=== PATIENT | female | born 1935 | race Caucasian/White ===

== ENCOUNTER → 2017-01-31 | Outpatient (CLI) | payer OTHER ==
[~2017-01-31] MED LIST: ALLO100T PO; AMOX500C3 PO; CALCTAB7 PO; CEPH500C2 PO; CHOL100010 PO; CHOL1TAB76 PO; CHOL4POW11 PO; CIPR-255 PO; CRAN1CAP16 PO; CRAN1TAB PO; CYAN100020 PO; LACT1CAP21 PO; LBT/100 PO; LOSA100T2 PO; MBXC PO; MELA1TAB5 PO; MISCTAB78 PO; MYCO500T5 PO; NYSS/ PO; OMEP20CA59 PO; OXYC1TAB3 PO; PARO1TAB27 PO; POTA-327 PO; POTA10CA28 PO; PRD10 PO; TRAZ50TA35 PO; TRMCR515 TOP; VITAMIN D PO
[2017-01-31 12:20] LABS: BASO % 0.3 %; BASO ABS # 0.02 K/uL (0-0.2); COMPLETE YES; EOS % 1.2 %; HEMATOCRIT 41.9 % (37-47); IG% 0.1 %; LYMPH % 19.1 %; MEAN CELL VOLUME 95.4 fL (80-100); MEAN CORPUSCULAR HGB CONC 32.5 g/dl (32-36); MEAN PLATELET VOLUME 10.4 fL (7.4-10.4); MONO % 8.9 %; NEUT % 70.4 %; PLATELET COUNT 222 K/uL (130-400); RED BLOOD COUNT 4.39 M/uL (4.2-5.4); WHITE BLOOD COUNT 7.32 K/uL (4.8-10.8)
[2017-01-31 12:35] LABS: ALT/SGPT 15 U/L (12-78); BLOOD UREA NITROGEN 21 mg/dl (7-18); BUN/CREATININE RATIO 14.8 (10-20); CARBON DIOXIDE 30 mmol/L (21-32); CHLORIDE 102 mmol/L (98-107); GLUCOSE 106 mg/dl (70-99); POTASSIUM 4.2 mmol/L (3.5-5.1); SODIUM 138 mmol/L (136-145)
[2017-01-31 12:37] LABS: CALCIUM 9.6 mg/dl (8.5-10.1); URINE APPEARANCE CLEAR (CLEAR); URINE BILIRUBIN NEG (NEG); URINE COLOR YELLOW; URINE EPITHELIAL CELL AUTO >30 /lpf (0-5); URINE NITRITE NEG (NEG); URINE SPECIFIC GRAVITY 1.016 (1.000-1.030); UROBILINOGEN NEG (NEG); ZZUR CULT IF INDIC CLEAN CATCH YES
[2017-01-31 12:43] LABS: ESTIMATED AVERAGE GLUCOSE 128 mg/dl; HA1C FLAG Normal (Normal)
[2017-01-31 12:45] LABS: ALB/GLOB RATIO 0.9 (0.9-2); ALKALINE PHOSPHATASE 93 U/L (45-117); AST/SGOT 11 U/L (15-37)
[2017-01-31 12:46] LABS: MANUAL MICROSCOPIC REQUIRED? NO; REVIEW REQ? NO
--- NOTE | 2017-02-06 11:48 | CODING QUERY MEDICAL NECESSITY ---
SUPPORTING DIAGNOSIS NEEDED A supporting diagnosis is required for the test/procedure performed on this patient in order for us to be reimbursed by the patient's insurance. Please provide a supporting diagnosis for the following test/procedure listed below next to the test name along with your signature. *If there is no additional diagnosis for this patient that would support the following test/procedure please document that below next to the test/procedure. Test(s)/Procedure(s) that require a supporting diagnosis: DOS 01/31 * Hba1c DIAGNOSIS: Provider Signature: Date: Thank you Susan Santamaria Health Information Management Once completed, please kindly fax back to [phone] For questions please call [phone]
== END | disposition home or self-care (01) ==
LOC: C.LABBFT 09:49
PROVIDERS: ATTEND Internal Medicine
DX: R31.29 Other microscopic hematuria (principal); R73.03 Prediabetes; I10 Essential (primary) hypertension

== ENCOUNTER → 2017-02-20 | Outpatient (CLI) | payer OTHER ==
--- NOTE | 2017-02-20 13:27 | DIAGNOSTIC IMAGING REPORT ---
CHEST 2 VIEWS ROUTINE CLINICAL HISTORY: R09.89 Abnormal lung [id number] COMPARISON STUDY: 01/02/2016 FINDINGS: There is mild elevation of the right hemidiaphragm. The heart is normal in size. There is no failure. There is no focal pulmonary consolidation. There are no pleural effusions.[ IMPRESSION: Persistent elevation of the right hemidiaphragm. No acute findings. Electronically signed by: Nilay Polo M.D. 02/20/2017 1:26 PM Dictated Date/Time: 02/20/2017 1:25 PM
== END | disposition home or self-care (01) ==
LOC: C.RAD1850 13:15
PROVIDERS: ATTEND Internal Medicine
DX: R09.89 Other specified symptoms and signs involving the circulatory and respiratory systems (principal)

== ENCOUNTER → 2017-03-06 | Outpatient (CLI) | payer OTHER ==
[2017-03-06 12:25] LABS: BLOOD UREA NITROGEN 20 mg/dl (7-18); BUN/CREATININE RATIO 14.1 (10-20); CARBON DIOXIDE 28 mmol/L (21-32); CHLORIDE 104 mmol/L (98-107); GLUCOSE 97 mg/dl (70-99); POTASSIUM 3.5 mmol/L (3.5-5.1); SODIUM 141 mmol/L (136-145); URIC ACID 5.3 mg/dl (2.6-7.2)
[2017-03-06 12:28] LABS: CALCIUM 9.2 mg/dl (8.5-10.1)
[2017-03-06 12:35] LABS: PHOSPHORUS 3.3 mg/dl (2.5-4.9)
== END | disposition home or self-care (01) ==
LOC: C.LABBFT 09:56
PROVIDERS: ATTEND Internal Medicine
DX: M10.9 Gout, unspecified (principal); N18.3 Chronic kidney disease, stage 3 (moderate); E03.9 Hypothyroidism, unspecified

== ENCOUNTER → 2017-04-01 | Outpatient (CLI) | payer OTHER ==
[~2017-04-01] MED LIST changes: -CIPR-255 PO; -OMEP20CA59 PO
== END | disposition home or self-care (01) ==
LOC: C.PATHSPEC 11:22
PROVIDERS: ATTEND Physician Assistant
DX: T81.9XXA Unspecified complication of procedure, initial encounter (principal); X58.XXXA Exposure to other specified factors, initial encounter

== ENCOUNTER → 2017-04-11 | Day surgery (SDC) | payer OTHER ==
[2017-04-09 09:55] VITALS: Ht 152.4 cm; Wt 72.7 kg
[~2017-04-11] VITALS: Ht 152.4 cm; Wt 72.7 kg
[~2017-04-11] MED LIST changes: -CHOL4POW11 PO; +LIDOCAINE HCL 2% 2 ML VIAL (20MG/ML) ONE; +PROPOFOL IV EMULSION 10 MG/ML 20 ML VIAL IV ONE; +SODIUM CHLORIDE 0.9% 500ML 500 ML IV ONE; -VITAMIN D PO
--- NOTE | 2017-04-11 11:26 | Endo History and Physical ---
History & Physical Date of Service: Apr 11, 2017. Chief Complaint: DYSPHAGIA Referring Physician: DR CLAVIN History of Present Illness Dysphagia Past Medical History Reflux, Hypertension Past Surgical History Hx Cardiac Surgery: No Hx Internal Defibrillator: No Hx Pacemaker: No Hx Abdominal Surgery: Yes (cholecystectomy, AND ERCP, [facility]IE[facility] BSO) Hx of Implantable Prosthesis: No Hx Post-Op Nausea and Vomiting: No Hx Cancer Surgery: No Hx Thoracic Surgery: No Hx Orthopedic: No Hx Urinary Tract Surgery: No Family History None Social History Smoking Status: Never Smoker Hx Substance Use: No Hx Alcohol Use: No Allergies Coded Allergies: Felodipine (Verified Allergy, Unknown, pt unsure, 04/09/17) Venlafaxine (Verified Allergy, Unknown, pt unsure, 04/09/17) Alendronate (Verified Adverse Reaction, Unknown, diarrhea and vomiting, ) Amlodipine (Verified Adverse Reaction, Unknown, pt unsure, 04/09/17) Current Medications Reported Home Medications Medications Dose Route/Sig Max Daily Dose Days Date Category Dose Instructions Keflex (Cephalexin Monohydrate) 500 Mg Cap 500 Mg PO TID 04/09/17 Reported Cranberry (Cranberry (Vaccinium Macrocarp) 125 Mg Tab 1 Tab PO QAM 04/09/17 Reported Kp Melatonin (Melatonin) 3 Mg Tab 1 Tab PO HS 04/09/17 Reported Vitamin D (Cholecalciferol) 1,000 Unit Tab 2,000 Intunit PO QAM 04/09/17 Reported Caltrate 600 Plus (Calcium Carbonate-Vitamin D W/) 1 Tab Tab 1 Tab PO BID 03/20/17 Reported Hyzaar (Losartan Potassium & Hydrochlo) 1 Tab Tab 1 Tab PO DAILY 30 03/20/17 Reported Paxil (Paroxetine HCl) 20 Mg Tab 20 Mg PO QAM 03/20/17 Reported Triamcinolone Acetonide (Triamcinolone Acet) 45 Appln/15 Gm Cr 1 Appln TOP BID 30 03/20/17 Reported Trazodone (Trazodone HCl) 50 Mg Tab 50 Mg PO HS 01/02/16 Reported Osteo Bi-Flex Advanced Do ([facility] Products) 1 Tab Tab 1 Tab PO QAM 01/04/14 Reported Hyzaar (Losartan Potassium & Hydrochlo) 1 Tab Tab 1 Tab PO QAM 01/04/14 Reported 100/25 Normodyne (Labetalol Hcl) 100 Mg Tab 100 Mg PO Q12 01/04/14 Reported Klor-Con (Potassium Chloride) 10 Meq Tabcr 10 Meq PO BID 01/04/14 Reported Zyloprim (Allopurinol) 100 Mg Tab 100 Mg PO QAM 01/04/14 Reported Vital Signs Weight (Kilograms): 72.73 Height (Feet): 5 Height (Inches): 0 Date Time Temp Pulse Resp B/P (MAP) Pulse Ox O2 Delivery O2 Flow Rate FiO2 04/11/17 10:55 36.7 78 20 159/95 (116) 99 Room Air Physical Exam General Appearance: WD/WN, no apparent distress Respiratory/Chest: Auscultation: breath sounds normal, no wheezing, no rales/crackles Cardiovascular: Heart Auscultation: RRR, no murmurs Abdomen: Inspection & Palpation: soft, no tenderness, guarding & rebound Assessment and Plan For EGD with dilation.
--- NOTE | 2017-04-11 11:45 | Discharge Instructions ---
Endoscopy Patient Instructions Date / Procedure(s) Performed Apr 11, 2017. EGD Allergy Information Coded Allergies: Felodipine (Verified Allergy, Unknown, pt unsure, 04/09/17) Venlafaxine (Verified Allergy, Unknown, pt unsure, 04/09/17) Alendronate (Verified Adverse Reaction, Unknown, diarrhea and vomiting, ) Amlodipine (Verified Adverse Reaction, Unknown, pt unsure, 04/09/17) Discharge Date / Findings Apr 11, 2017. Esophageal dilation performed. Hiatal hernia. Duodenal diverticulum. Medication Instructions Restart Stopped Medication(s): Resume all medications today. Provider Instructions Activity Restrictions - No exercising or heavy lifting for 24 hours. - Do not drink alcohol the day of the procedure. - Do not drive a car or operate machinery until the day after the procedure. - Do not make any important decisions or sign important papers in 24 hours after the procedure. Following Day: - Return to full activity which may include returning to work/school. Diet Start your diet with liquids and light foods (jello, soup, juice, toast). Then eat your usual diet if not nauseated. Treatment For Common After Affects For mild abdominal pain, bloating, or excessive gas: - Rest - Eat lightly - Lie on right side Follow-Up Information Follow-up with DR CALVIN as scheduled Anesthesia Information What You Should Know You have had a procedure that required some medicine to reduce anxiety and discomfort. This treatment is called moderate sedation. After receiving the treatment, you may be sleepy, but you will be able to breathe on your own. The effects of the treatment may last for several hours. Follow these instructions along with Activity/Diet recommendations noted above: * Do NOT do anything where dizziness or clumsiness would be dangerous. * Rest quietly at home today, then you can be up and about tomorrow. * Have a responsible person stay with you the rest of today. * You may have had an I.V. today. If so, you may take the dressing off later today. Recommendations Call your doctor if: * Trouble breathing * Continuous vomiting for more than 24 hours * Temperature above 101 degrees * Severe abdominal pain or bloating * Pain not relieved by pain medicine ordered * There is increased drainage or redness from any incision * A large amount of rectal bleeding greater than 2-3 tablespoons. (If you had a polyp/s removed or have hemorrhoids, a small amount of blood - from the rectum is to be expected.) * You have any unanswered questions or concerns. IN THE EVENT OF A SERIOUS EMERGENCY, GO TO THE NEAREST EMERGENCY ROOM Your discharge instructions were prepared by provider David Barry. Patient Instructions Signature Page Kenna Schmidt Patient (or Guardian) Signature/Date: I have read and understand the instructions given to me by my caregivers. Caregiver/RN/Doctor Signature/Date: The above-named patient and/or guardian has received patient instructions on this date. + Original Patient Signature Page (only) stays with chart. Please make copy for patient.
--- NOTE | 2017-04-11 11:45 | GI REPORT ---
Procedure Date: 04/11/2017 10:46 AM Procedure: Upper GI endoscopy Indications: Dysphagia Medicines: Monitored Anesthesia Care Complications: No immediate complications. Estimated blood loss: None. Estimated Blood Loss: Estimated blood loss: none. Procedure: Pre-Anesthesia Assessment: - Prior to the procedure, a History and Physical was performed, and patient medications, allergies and sensitivities were reviewed. The patient's tolerance of previous anesthesia was reviewed. - ASA Grade Assessment: II - A patient with mild systemic disease. After obtaining informed consent, the endoscope was passed under direct vision. Throughout the procedure, the patient's blood pressure, pulse, and oxygen saturations were monitored continuously. The scope was introduced through the mouth, and advanced to the third part of duodenum. The upper GI endoscopy was accomplished with ease. The patient tolerated the procedure well. Findings: No endoscopic abnormality was evident in the esophagus to explain the patient's complaint of dysphagia. It was decided, however, to proceed with dilation of the entire esophagus. A guidewire was placed and the scope was withdrawn. Dilation was performed with an Moroccan dilator with no resistance at 48 Fr and 54 Fr. The Z-line was regular and was found 33 cm from the incisors. Biopsies were taken with a cold forceps for histology. A small hiatus hernia was present. The entire examined stomach was normal. Biopsies were taken with a cold forceps for Helicobacter pylori testing. A large diverticulum was found in the second part of the duodenum. Verification of patient identification for the specimens was done by the physician and nurse using the patient's name, date and medical record number. Impression: - No endoscopic esophageal abnormality to explain patient's dysphagia. Esophagus dilated. Dilated. - Z-line regular, 33 cm from the incisors. Biopsied. - Small hiatus hernia. - Normal stomach. Biopsied. - Duodenal diverticulum. Recommendation: - Await pathology results. - Discharge patient to home (with escort). David Barry M.D. David Barry MD 04/11/2017 11:44:36 AM This report has been signed electronically. Note Initiated On: 04/11/2017 10:46 AM I attest to the content of the Intraoperative Record and orders documented therein, exceptions below
--- NOTE | 2017-04-11 12:07 | Anesthesiology Progress Note ---
Anesthesia Post Op Note Date & Time Apr 11, 2017 at 12:07 Vital Signs Vital Signs Past 12 Hours Date Time Temp Pulse Resp B/P (MAP) Pulse Ox O2 Delivery O2 Flow Rate FiO2 04/11/17 11:50 80 20 110/63 (79) 100 Mask 10 04/11/17 10:55 36.7 78 20 159/95 (116) 99 Room Air Notes Mental Status: alert / awake / arousable, participated in evaluation Pt Amnestic to Procedure: Yes Nausea / Vomiting: adequately controlled Pain: adequately controlled Airway Patency, RR, SpO2: stable & adequate BP & HR: stable & adequate Hydration State: stable & adequate Anesthetic Complications: no major complications apparent
[2017-04-11 12:26] VITALS: BP 144/82; PULSE 69; O2SAT 95
== END | disposition home or self-care (01) ==
LOC: C.GI 10:13
PROVIDERS: ATTEND Internal Medicine Gastroenterology
DX: R13.10 Dysphagia, unspecified (principal); K44.9 Diaphragmatic hernia without obstruction or gangrene; K22.5 Diverticulum of esophagus, acquired; K29.50 Unspecified chronic gastritis without bleeding; K21.9 Gastro-esophageal reflux disease without esophagitis; I10 Essential (primary) hypertension; Z79.899 Other long term (current) drug therapy

== ENCOUNTER → 2017-04-19 | Outpatient (CLI) | payer OTHER ==
[~2017-04-19] MED LIST changes: -LIDOCAINE HCL 2% 2 ML VIAL (20MG/ML) ONE; -PROPOFOL IV EMULSION 10 MG/ML 20 ML VIAL IV ONE; -SODIUM CHLORIDE 0.9% 500ML 500 ML IV ONE
[2017-04-19 17:21] LABS: BLOOD UREA NITROGEN 21 mg/dl (7-18); CALCIUM 9.1 mg/dl (8.5-10.1); CARBON DIOXIDE 28 mmol/L (21-32); CHLORIDE 104 mmol/L (98-107); GLUCOSE 101 mg/dl (70-99); POTASSIUM 3.6 mmol/L (3.5-5.1); SODIUM 139 mmol/L (136-145)
== END | disposition home or self-care (01) ==
LOC: C.LABBFT 11:34
PROVIDERS: ATTEND Internal Medicine
DX: E03.9 Hypothyroidism, unspecified (principal)

== ENCOUNTER 2017-05-04 19:29 | Inpatient (IN) | payer OTHER ==
[~2017-05-04] VITALS: Ht 152.4 cm; Wt 70.5 kg
[~2017-05-04 19:29] MED LIST changes: -AMOX500C3 PO; -CHOL1TAB76 PO; -CRAN1CAP16 PO; -CYAN100020 PO; -LACT1CAP21 PO; -MBXC PO; -MYCO500T5 PO; -NYSS/ PO; -OXYC1TAB3 PO; -POTA10CA28 PO; -PRD10 PO; +VANCOMYCIN INJ 1,750 MG in SODIUM CHLORIDE 0.9% 500ML 500 ML IV STA
[2017-05-04] MEDS ORDERED: SODIUM CHLORIDE 0.9% 1000ML 1,000 ML IV STA (19:51)
[2017-05-04] MEDS ORDERED: FENTANYL CITRATE INJ 50 MCG/1 ML 2 ML VIAL IV PRN (20:00)
[2017-05-04] MEDS ORDERED: AMPICILLIN/SULBACTAM SOD INJ 3,000 MG in SODIUM CHLORIDE 0.9% 100ML 100 ML IV ONE (20:00)
[2017-05-04] MEDS ORDERED: PRD10 PO (20:17)
[2017-05-04] MEDS ORDERED: CYAN100020 PO (20:17)
[2017-05-04] MEDS ORDERED: CHOL1TAB76 PO (20:17)
[2017-05-04] MEDS ORDERED: MYCO500T5 PO (20:17)
[2017-05-04] MEDS ORDERED: CEPH500C2 PO (20:17)
[2017-05-04] MEDS ORDERED: POTA10CA28 PO (20:17)
[2017-05-04] MEDS ORDERED: CRAN1CAP16 PO (20:17)
[2017-05-04 20:21] LABS: HEMATOCRIT 40.5 % (37-47); MEAN CORPUSCULAR HEMOGLOBIN 30.2 pg (25-34); MEAN CORPUSCULAR HGB CONC 33.6 g/dl (32-36); MEAN PLATELET VOLUME 9.1 fL (7.4-10.4); PLATELET COUNT 275 K/uL (130-400); WHITE BLOOD COUNT 17.61 K/uL (4.8-10.8)
--- NOTE | 2017-05-04 20:36 | DIAGNOSTIC IMAGING REPORT ---
RIGHT FOOT MIN 3 VIEWS ROUTINE CLINICAL HISTORY: Cellulitis. Evaluate for evidence of osteomyelitis. COMPARISON: None FINDINGS: Alignment of the tarsometatarsal joints is anatomic. 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 There is mild posterior and plantar calcaneal spurring. There is no acute fracture or evidence of osteomyelitis within the right foot. IMPRESSION: No acute fracture or radiographic evidence of osteomyelitis within the right foot. Electronically signed by: Rocael Wilhelm M.D. 05/04/2017 8:35 PM Dictated Date/Time: 05/04/2017 8:30 PM
[2017-05-04 20:38] LABS: BUN/CREATININE RATIO 15.2 (10-20); CALCIUM 8.9 mg/dl (8.5-10.1); CREATININE 1.2 mg/dl (0.60-1.20); POTASSIUM 3.6 mmol/L (3.5-5.1)
[2017-05-04 20:58] LABS: BASO % 0.1 %; BASO ABS # 0.01 K/uL (0-0.2); COMPLETE YES; IG% 0.2 %; LYMPH % 3.8 %; LYMPH ABS # 0.67 K/uL (1.2-3.4); MONO % 3.6 %; NEUT % 92.3 %
--- NOTE | 2017-05-04 21:48 | EMERGENCY ROOM VISIT NOTE ---
History Report prepared by Laura: Carly Powell Under the Supervision of: Dr. Kb Woo D.O. First contact with patient: 19:41 Chief Complaint: WOUND INFECTION Stated Complaint: WOUND INFECTION History of Present Illness The patient is a 81 year old female who presents to the Emergency Room with complaints of worsening wound infection starting yesterday. She had been having trouble with her skin for the past 3 months. 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 She has lesions all over her body and in her mouth. She was started on Prednisone and Keflex. Yesterday, her daughter found that the lesion on her right foot seemed to be infected. It had developed a bad odor and redness. There is also a lesion on her buttocks that is painful. The lesions in her mouth make it difficult for her to eat. She is borderline diabetic. Source of History: patient, family Onset: yesterday Position: foot (right) Quality: other (wound infection) Timing: worsening Note: Pt reports redness and bad odor from wound. Review of Systems See HPI for pertinent positives & negatives. A total of 10 systems reviewed and were otherwise negative. Past Medical & Surgical Medical Problems: (1) Hypertension (2) Pemphigus vulgaris Family History Cancer Gallbladder disease Social History Smoking Status: Never Smoker Alcohol Use: none Drug Use: none Marital Status: Housing Status: lives alone Occupation Status: retired Current/Historical Medications Scheduled Allopurinol (Zyloprim), 100 MG PO QAM Cephalexin Monohydrate (Keflex), 500 MG PO BID Cholecalciferol (D 2000), 2,000 UNITS PO QAM Cranberry (Vaccinium Macrocarp (Cranberry), Unknown Dose PO QAM Cyanocobalamin (Vitamin B12), 1,000 MCG PO QAM Labetalol Hcl (Normodyne), 100 MG PO Q12 Melatonin (Kp Melatonin), 1 TAB PO HS Mycophenolate Mofetil (Mycophenolate Mofetil), 1,000 MG PO BID Paroxetine (Paxil), 20 MG PO QAM Potassium Chloride (Micro-K Ext Rel), 10 MEQ PO BID Prednisone (Prednisone), 40 MG PO DAILY Trazodone Hcl (Trazodone), 50 MG PO HS Allergies Coded Allergies: Alendronate (Verified Adverse Reaction, Intermediate, DIARRHEA AND VOMITING, 05/04/17) Amlodipine (Verified Adverse Reaction, Intermediate, DIARRHEA, 05/04/17) Felodipine (Verified Adverse Reaction, Intermediate, DIARRHEA, 05/04/17) Venlafaxine (Verified Adverse Reaction, Intermediate, DIARRHEA, 05/04/17) Physical Exam Vital Signs Date Time Temp Pulse Resp B/P (MAP) Pulse Ox O2 Delivery O2 Flow Rate FiO2 05/04/17 21:17 80 18 152/82 92 Room Air 05/04/17 19:32 36.8 118 18 134/83 95 Room Air Physical Exam CONSTITUTIONAL/VITAL SIGNS: Reviewed / noted above. GENERAL: Non-toxic in appearance. INTEGUMENTARY: Multiple lesions in different ages of healing on her body with the expected appearance of pemphigus vulgaris. There is a lesion on the plantar surface of the right foot that is ulcerated, foul smelling, and erythematous. There are also erythematous lesions in the area of the soft palate and posterior oropharynx. HEAD: Normocephalic. EYES: without scleral icterus or trauma. ENT/OROPHARYNX: clear and moist. LYMPHADENOPATHY/NECK: Is supple without lymphadenopathy or meningismus. RESPIRATORY: Lungs clear and equal. CARDIOVASCULAR: Regular rate and rhythm. GI/ABDOMEN: Soft and nontender. No organomegaly or pulsatile mass. No rebound or guarding. Normal bowel sounds. EXTREMITIES: Warm and well perfused. BACK: No CVA tenderness. NEUROLOGICAL: Intact without focal deficits. PSYCHIATRIC: normal affect. MUSCULOSKELETAL: Normally developed with good muscle tone. Medical Decision & Procedures ER Provider Diagnostic Interpretation: X ray results and stated below per my interpretation and radiology interpretation. RIGHT FOOT MIN 3 VIEWS ROUTINE CLINICAL HISTORY: Cellulitis. Evaluate for evidence of osteomyelitis. COMPARISON: None FINDINGS: Alignment of the tarsometatarsal joints is anatomic. 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 There is mild posterior and plantar calcaneal spurring. There is no acute fracture or evidence of osteomyelitis within the right foot. IMPRESSION: No acute fracture or radiographic evidence of osteomyelitis within the right foot. Electronically signed by: Rocael Wilhelm M.D. 05/04/2017 8:35 PM Dictated Date/Time: 05/04/2017 8:30 PM Laboratory Results 05/04/17 20:10 Red Blood Count 4.50, Mean Corpuscular Volume 90.0, Mean Corpuscular Hemoglobin 30.2, Mean Corpuscular Hemoglobin Concent 33.6, Mean Platelet Volume 9.1, Neutrophils (%) (Auto) 92.3, Lymphocytes (%) (Auto) 3.8, Monocytes (%) (Auto) 3.6, Eosinophils (%) (Auto) 0.0, Basophils (%) (Auto) 0.1, Neutrophils # (Auto) 16.25, Lymphocytes # (Auto) 0.67, Monocytes # (Auto) 0.64, Eosinophils # (Auto) 0.00, Basophils # (Auto) 0.01 05/04/17 20:10 Test 05/04/17 20:10 White Blood Count 17.61 K/uL (4.8-10.8) Red Blood Count 4.50 M/uL (4.2-5.4) Hemoglobin 13.6 g/dL (12.0-16.0) Hematocrit 40.5 % (37-47) Mean Corpuscular Volume 90.0 fL (80-100) Mean Corpuscular Hemoglobin 30.2 pg (25-34) Mean Corpuscular Hemoglobin Concent 33.6 g/dl (32-36) Platelet Count 275 K/uL (130-400) Mean Platelet Volume 9.1 fL (7.4-10.4) Neutrophils (%) (Auto) 92.3 % Lymphocytes (%) (Auto) 3.8 % Monocytes (%) (Auto) 3.6 % Eosinophils (%) (Auto) 0.0 % Basophils (%) (Auto) 0.1 % Neutrophils # (Auto) 16.25 K/uL (1.4-6.5) Lymphocytes # (Auto) 0.67 K/uL (1.2-3.4) Monocytes # (Auto) 0.64 K/uL (0.11-0.59) Eosinophils # (Auto) 0.00 K/uL (0-0.5) Basophils # (Auto) 0.01 K/uL (0-0.2) RDW Standard Deviation 43.8 fL (36.4-46.3) RDW Coefficient of Variation 13.3 % (11.5-14.5) Immature Granulocyte % (Auto) 0.2 % Immature Granulocyte # (Auto) 0.04 K/uL (0.00-0.02) Anion Gap 6.0 mmol/L (3-11) Est Creatinine Clear Calc Drug Dose 33.3 ml/min Estimated GFR () 49.8 Estimated GFR (Non- 43.0 BUN/Creatinine Ratio 15.2 (10-20) Calcium Level 8.9 mg/dl (8.5-10.1) Laboratory results as stated above per my review. Medications Administered Medications (Trade) Dose Ordered Sig/Grace Route Start Time Stop Time Status Last Admin Dose Admin Ampicillin Sodium/ Sulbactam Sodium 3000 mg/Sodium Chloride 108 ml @ 200 mls/hr ONE ONCE IV 05/04/17 20:00 05/04/17 20:32 DC 05/04/17 20:26 200 MLS/HR Fentanyl Citrate (Fentanyl Inj) 50 mcg Q1H PRN IV 05/04/17 20:00 05/18/17 19:59 05/04/17 20:25 50 MCG Sodium Chloride 1,000 ml @ 300 mls/hr Q3H20M STAT IV 05/04/17 19:51 05/04/17 23:10 05/04/17 20:25 300 MLS/HR ED Course 1942: Previous medical records were reviewed. The patient was evaluated in room C1B. A complete history and physical examination was performed. 1950: NSS 1000 ml @ 300 mls/hr IV. 1999: Fentanyl Citrate 50 mcg IV, Ampicillin Sodium/Sulbactam Sodium 3,000 mg/ Sodium Chloride 108 ml @ 200 mls/hr IV. 2119: On reevaluation, the patient is stable. I discussed the results and findings with her and her family. They verbalized agreement of the treatment plan. The patient will be evaluated for further management and care. 2128: I discussed the patient's case with Dr. Ramirez, [facility] hospitalist. The patient will be evaluated for further treatment and disposition. Medical Decision Differential diagnosis: Etiologies such as cellulitis, abscess, MRSA infection, DVT, necrotizing fasciitis, dermatitis, drug eruption, as well as others were entertained. This is a 81-year-old female who presents to the ED with a chief complaint of right foot discomfort and cellulitis. The patient is currently on CellCept, prednisone and Keflex. She has been recently diagnosed with pemphigus vulgaris. The patient's daughter, who is a nurse, states that she has been attending to a wound in the right heel. This wound has become increasingly foul -smelling and erythematous according to the patient's daughter. She is concerned about cellulitis. The patient's exam reveals a large ulcerative lesion to the right heel. It is foul-smelling without purulent discharge. There are some additional lesions on the patient's body of various stages of healing from the pemphigus vulgaris. She also has some lesions in the posterior oropharynx. The patient's daughter states that she has not been eating or drinking well because of discomfort in her throat. Her vital signs are stable. She is slightly tachycardic. Her white blood cell count was 17.6. PRP was normal. X-ray of the right foot did not show osteomyelitis. The patient was treated with IV fluids, IV fentanyl IV Unasyn. She will be seen by the hospitalist service for further inpatient evaluation and care for her wound. Medication Reconcilliation Current Medication List: was personally reviewed by me Blood Pressure Screening Patient's blood pressure: Normal blood pressure Blood pressure disposition: Did not require urgent referral Consults Time Called: 2125 Consulting Physician: Dr. Ramirez, [facility] hospitalist Returned Call: [phone] Discussed the patient's case. The patient will be evaluated for further treatment and disposition. Impression Primary Impression: Cellulitis of right foot Additional Impression: Failure of outpatient treatment Scribe Attestation The scribe's documentation has been prepared under my direction and personally reviewed by me in its entirety. I confirm that the note above accurately reflects all work, treatment, procedures, and medical decision making performed by me. Departure Information Dispostion Being Evaluated By Hospitalist Referrals Heladio Esteves M.D. (PCP) Patient Instructions My [facility] Problem Qualifiers
[2017-05-04] MEDS ORDERED: AMPICILLIN/SULBACTAM SOD INJ 3,000 MG in SODIUM CHLORIDE 0.9% 100ML 100 ML IV SCH (22:15)
[2017-05-04] MEDS ORDERED: LIDOCAINE HCL 2% VISC SOLN 20 ML UDC MT PRN (22:15)
[2017-05-04] MEDS ORDERED: ACETAMINOPHEN 325 MG TAB PO PRN (22:15)
[2017-05-04] MEDS ORDERED: ONDANSETRON INJ 2 MG/ML 2 ML VIAL IV PRN (22:15)
[2017-05-04] MEDS ORDERED: POLYETHYLENE (MIRALAX) 17 GM PACK PO PRN (22:15)
--- NOTE | 2017-05-04 22:19 | History and Physical ---
History & Physical Date & Time of Service: May 04, 2017 at 22:18 Chief Complaint: Wound Infection Primary Care Physician: Heladio Esteves M.D. History of Present Illness Source: patient, family 79-year-old female with a past medical history of hypertension, gout, recent diagnosis of pemphigus vulgaris presented to the ER with complaints of a possible infection on her right foot. The patient was recently diagnosed with pemphigus vulgaris and was started on immunosuppressive therapy with mycophenolate and prednisone and treated as an outpatient for a possible infection with Keflex. She has several open skin lesions secondary to ruptured bullae on her body and has a lesion on her right foot which appeared to have a purulent drainage and increased redness. She also has lesions in her mouth. She denied any fevers or chills but had recently returned from a camping trip. She also had noted that after returning from vacation she realized that her house was infested with mice and is concerned as she is currently on immunosuppressive therapy. Past Medical/Surgical History Medical Problems: (1) Hypertension Status: Chronic (2) Pemphigus vulgaris Status: Chronic Family History Cancer Gallbladder disease Social History Smoking Status: Never Smoker Drug Use: none Marital Status: Occupational Status: retired Multi-Drug Resistant Organisms History of MDRO: No Allergies Coded Allergies: Alendronate (Verified Adverse Reaction, Intermediate, DIARRHEA AND VOMITING, 05/04/17) Amlodipine (Verified Adverse Reaction, Intermediate, DIARRHEA, 05/04/17) Felodipine (Verified Adverse Reaction, Intermediate, DIARRHEA, 05/04/17) Venlafaxine (Verified Adverse Reaction, Intermediate, DIARRHEA, 05/04/17) Home Medications Scheduled Allopurinol (Zyloprim), 100 MG PO QAM Cephalexin Monohydrate (Keflex), 500 MG PO BID Cholecalciferol (D 1999), 2,000 UNITS PO QAM Cranberry (Vaccinium Macrocarp (Cranberry), Unknown Dose PO QAM Cyanocobalamin (Vitamin B12), 1,000 MCG PO QAM Labetalol Hcl (Normodyne), 100 MG PO Q12 Melatonin (Kp Melatonin), 1 TAB PO HS Mycophenolate Mofetil (Mycophenolate Mofetil), 1,000 MG PO BID Paroxetine (Paxil), 20 MG PO QAM Potassium Chloride (Micro-K Ext Rel), 10 MEQ PO BID Prednisone (Prednisone), 40 MG PO DAILY Trazodone Hcl (Trazodone), 50 MG PO HS Review of Systems Constitutional: No fever, No chills Eyes: No worsening of vision ENT: No hearing loss Respiratory: No cough Cardiovascular: No chest pain Abdomen: No pain, No nausea Musculoskeletal: No joint pain Genitourinary - Female: No dysuria Neurologic: No memory loss Psychiatric: No depression symptoms Endocrine: No fatigue Hematologic / Lymphatic: No abnormal bleeding/bruising Integumentary: + new/changing skin lesions (several ruptured bullae all over the body) Allergic / Immunologic: No environmental allergies Physical Exam Vital Signs Date Time Temp Pulse Resp B/P (MAP) Pulse Ox O2 Delivery O2 Flow Rate FiO2 05/04/17 21:17 80 18 152/82 92 Room Air 05/04/17 19:32 36.8 118 18 134/83 95 Room Air General Appearance: WD/WN, no apparent distress Eyes: normal inspection ENT: normal ENT inspection, hearing grossly normal Neck: supple Respiratory/Chest: lungs clear, no respiratory distress, no accessory muscle use Cardiovascular: regular rate, rhythm Abdomen/GI: normal bowel sounds, non tender, soft Neurologic/Psych: alert, normal mood/affect, oriented x 3 Skin: + pertinent finding (several areas of ruptured bullae on bilateral inner thighs, buttock area, chest, oral cavity including tongue and roof of the mouth , right foot which appears to be infected with purulent drainage) Diagnostics Laboratory Results Results Past 24 Hours Test 05/04/17 20:10 Range/Units White Blood Count 17.61 4.8-10.8 K/uL Red Blood Count 4.50 4.2-5.4 M/uL Hemoglobin 13.6 12.0-16.0 g/dL Hematocrit 40.5 37-47 % Mean Corpuscular Volume 90.0 80-100 fL Mean Corpuscular Hemoglobin 30.2 25-34 pg Mean Corpuscular Hemoglobin Concent 33.6 32-36 g/dl Platelet Count 275 130-400 K/uL Mean Platelet Volume 9.1 7.4-10.4 fL Neutrophils (%) (Auto) 92.3 % Lymphocytes (%) (Auto) 3.8 % Monocytes (%) (Auto) 3.6 % Eosinophils (%) (Auto) 0.0 % Basophils (%) (Auto) 0.1 % Neutrophils # (Auto) 16.25 1.4-6.5 K/uL Lymphocytes # (Auto) 0.67 1.2-3.4 K/uL Monocytes # (Auto) 0.64 0.11-0.59 K/uL Eosinophils # (Auto) 0.00 0-0.5 K/uL Basophils # (Auto) 0.01 0-0.2 K/uL RDW Standard Deviation 43.8 36.4-46.3 fL RDW Coefficient of Variation 13.3 11.5-14.5 % Immature Granulocyte % (Auto) 0.2 % Immature Granulocyte # (Auto) 0.04 0.00-0.02 K/uL Sodium Level 137 136-145 mmol/L Potassium Level 3.6 3.5-5.1 mmol/L Chloride Level 101 98-107 mmol/L Carbon Dioxide Level 30 21-32 mmol/L Anion Gap 6.0 3-11 mmol/L Blood Urea Nitrogen 18 7-18 mg/dl Creatinine 1.20 0.60-1.20 mg/dl Est Creatinine Clear Calc Drug Dose 33.3 ml/min Estimated GFR () 49.8 Estimated GFR (Non- 43.0 BUN/Creatinine Ratio 15.2 10-20 Random Glucose 158 70-99 mg/dl Calcium Level 8.9 8.5-10.1 mg/dl Microbiology Results 05/04/17 Blood Culture, Received Pending 05/04/17 Blood Culture, Received Pending Diagnostic Radiology RIGHT FOOT MIN 3 VIEWS ROUTINE CLINICAL HISTORY: Cellulitis. Evaluate for evidence of osteomyelitis. COMPARISON: None FINDINGS: Alignment of the tarsometatarsal joints is anatomic. 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 There is mild posterior and plantar calcaneal spurring. There is no acute fracture or evidence of osteomyelitis within the right foot. IMPRESSION: No acute fracture or radiographic evidence of osteomyelitis within the right foot. Electronically signed by: Rocael Wilhelm M.D. 05/04/2017 8:35 PM Dictated Date/Time: 05/04/2017 8:30 PM Impression Assessment and Plan 79-year-old female with a past medical history of hypertension, gout, recent diagnosis of pemphigus vulgaris presented to the ER with complaints of a possible infection on her right foot. Cellulitis of right foot: - Likely due to Superinfection of ruptured bullae - Wound culture, blood culture pending - Foot x-ray negative for osteomyelitis - Failed outpatient treatment with Keflex - Started on vancomycin, Zosyn , had received Unasyn in the ER - Pain control with morphine as needed - Wound care consult for open areas of ruptured bullae Pemphigus vulgaris: -Recently diagnosed after biopsy confirmation - Continue immunosuppressive therapy with mycophenolate and prednisone - Morphine for pain control - Viscous Lidocaine for lesions in the mouth Hypertension -Continue labetalol Gout -Continue allopurinol Insomnia: -Continue trazodone DVT prophylaxis: -Heparin subcutaneous DO NOT RESUSCITATE Disposition: Admitted to [facility] Med/Surg Resuscitation Status DO NOT RESUSCITATE VTE Prophylaxis VTE Risk Assessment Done? Y/N: Yes Risk Level: Moderate Given or contraindicated: Unfractionated heparin SQ Note Resident Physician Supervision Note: I was present with PGY3 Dr. Sarah Krishnamurthy during the history and exam. I discussed the case with the resident and agree with the findings and plan as documented in the note. Any exceptions or clarifications are listed here: none. 81yo female with pemiphus vulgaris, present for 3-4 months but just recently formally diagnosed with biopsy, who presents with her family with concerns of super infection of one of the ulcers of the right foot. She has numerous lesions that have opened. Her daughter, an RN at [employer], has been dressing the open bullae with xeroform dressings. She also has numerous lesions in her mouth leading to difficulty with maintaining proper nutrition. Apparently the right foot lesion had copious amounts of foul-smelling drainage prior to the bullae rupturing. PMH, PSH, allergies, meds, sochx, famhx, ros - reviewed VSS, afebrile gen - nad mouth - multiple ulcerations on tongue, buccal mucosa heart - RRR lungs - CTA b/l abd - soft, NT, ND, BS+ ext - no edema skin - numerous pemphigus ulcerations with some active bullae still present; ulcerations are located on the face, buttocks, upper chest, legs, hands, feet large ulceration on medial aspect of right foot extending to plantar surface; there is necrotic appearing skin on the periphery of this ulcer; foul odor, no drainage however at this time; no associated cellulitis A/P: 1. pemphigus vulgaris - recent diagnosis, now on prednisone and cellcept 2. extensive mucosal involvement of oral cavity 3. superinfection of right foot ulceration 4. anorexia 5. HTN cont prednisone and cellcept consider [facility] consultation IV vancomycin and aztreonam (or cefepime, etc) for right foot ulcer with infection; at risk of MRSA, gram negative pathogens, etc pain control boost TID with meals wound care consult; xeroform guaze in meantime Documented By: Mc Ramirez MD Resident Tracking Resident Involvement: Resident Care Provided Care Provided: Adult Hospital Medicine
[2017-05-04 22:31] VITALS: O2SAT 95
[2017-05-05] MEDS ORDERED: AZTREONAM IV 2,000 MG in DEXTROSE 5% 100ML 100 ML IV SCH (00:15)
[2017-05-05] MEDS ORDERED: VANCOMYCIN INJ 1,750 MG in SODIUM CHLORIDE 0.9% 500ML 500 ML IV ONE (00:30)
[2017-05-05] MEDS: SODIUM CHLORIDE 0.9% 1000ML 1,000 ML IV SCH ×3 (00:37→18:04)
[2017-05-05] MEDS: MoRPHine SULFATE 2 MG/ML CARP IV PRN ×2 (00:38→09:03)
[2017-05-05] MEDS ORDERED: VANCOMYCIN CONSULT ACTIVE PRN (01:15)
[2017-05-05] MEDS ORDERED: PIPERACILL/TAZOBAC CONSULT ACTIVE PRN (01:15)
[2017-05-05] MEDS: PIPERACILL/TAZOBAC IV 3.375 GM in DEXTROSE 5% 100ML IV SCH ×3 (04:14→18:01)
[2017-05-05 04:32] VITALS: BP 146/72; TEMP 36.8; Ht 152.4 cm; Wt 70.5 kg
[2017-05-05 07:21] LABS: PROTHROMBIN TIME (PATIENT) 10.3 SECONDS (9.0-12.0)
[2017-05-05] MEDS ORDERED: BOOST VANILLA PO SCH ×2 (08:00)
[2017-05-05 08:07] VITALS: BP 146/65; PULSE 97; TEMP 36.9; O2SAT 92
[2017-05-05] MEDS: HEPARIN SOD 5000 UNIT/0.5 ML CARP SQ SCH ×3 (08:47→21:58)
[2017-05-05] MEDS: MYCOPHENOLATE MOFETIL 250 MG CAP (CELLCEPT) PO SCH ×2 (08:51→21:53)
[2017-05-05] MEDS: PAROXETINE 20 MG TAB PO SCH (08:52)
[2017-05-05] MEDS: POTASSIUM CHLORIDE 10 MEQ TABCR PO SCH ×2 (08:52→21:50)
[2017-05-05] MEDS: LABETALOL HCL 100 MG TAB PO SCH ×2 (08:52→21:51)
[2017-05-05] MEDS: ALLOPURINOL 100 MG TAB PO SCH (08:53)
--- NOTE | 2017-05-05 09:03 | Pharmacy Progress Note ---
Pharmacy Abx Initial Consult Date of Service May 05, 2017. Pharmacy Dosing Scope Date of Consult: 05/04/17 Consultation requested by: Dr. Krishnamurthy Pharmacy is consulted to initiate Vancomycin and Zosyn IV dosing therapy, order appropriate labs and adjust drug dose/frequency. Subjective The patient is a 81 year old female admitted on May 04, 2017 at 22:13. Objective Height (Feet): 5 Height (Inches): 0.00 Weight (Kilograms): 70.450 Vital Signs (Past 12Hrs) Vital Signs Past 12 Hours Date Time Temp Pulse Resp B/P (MAP) Pulse Ox O2 Delivery O2 Flow Rate FiO2 05/05/17 08:07 36.9 97 20 146/65 (92) 92 05/05/17 04:32 36.8 18 146/72 Room Air 05/04/17 22:31 84 18 146/72 95 05/04/17 21:17 80 18 152/82 92 Room Air Lab Results (24Hrs) Laboratory Tests (24 Hours) Test 05/04/17 20:10 White Blood Count 17.61 K/uL (4.8-10.8) H Red Blood Count 4.50 M/uL (4.2-5.4) Hemoglobin 13.6 g/dL (12.0-16.0) Hematocrit 40.5 % (37-47) Mean Corpuscular Volume 90.0 fL (80-100) Mean Corpuscular Hemoglobin 30.2 pg (25-34) Mean Corpuscular Hemoglobin Concent 33.6 g/dl (32-36) Platelet Count 275 K/uL (130-400) Mean Platelet Volume 9.1 fL (7.4-10.4) Neutrophils (%) (Auto) 92.3 % Lymphocytes (%) (Auto) 3.8 % Monocytes (%) (Auto) 3.6 % Eosinophils (%) (Auto) 0.0 % Basophils (%) (Auto) 0.1 % Neutrophils # (Auto) 16.25 K/uL (1.4-6.5) H Lymphocytes # (Auto) 0.67 K/uL (1.2-3.4) L Monocytes # (Auto) 0.64 K/uL (0.11-0.59) H Eosinophils # (Auto) 0.00 K/uL (0-0.5) Basophils # (Auto) 0.01 K/uL (0-0.2) Micro Results Date/Time Source Procedure Growth Status 05/04/17 20:10 Blood Blood Culture Pending Received 05/04/17 20:10 Blood Blood Culture Pending Received Risk Factors for Resistance * Immunocompromised -> pt on ongoing cellcept and prednisone * Antimicrobial use within the last 90 days -> Keflex Assessment & Plan Assessment 81 year old female with recent diagnosis of pemphigus vulgaris for which she was started on immunosuppressive therapy with cellcept and prednisone. Patient has extensive mucosal involvement of oral cavity and multiple pemphigus ulcerations on body. * Started on empiric Vancomycin and Zosyn for infected right foot ulceration. * + leukocytosis, afebrile * Recent sacrum ulcer grew MSSA (03/27/17) Plan Vanc and Zosyn IV for treatment of infected R-foot ulceration Vanc * Loading dose: 1750 mg (24.8 mg/kg) * Maintenance dose: 1100 mg IV (15.6 mg/kg) every 24 hours * Goal trough level for skin/skin structure infection : 15 to 20 mcg/mL ( pending culture results) * Trough level ordered for 05/07/17 Piperacillin/tazobactam * 3.375 g IV extended infusion every 8 hours for CrCl greater than 20 mL/min Pharmacy will continue to follow and will adjust dose/frequency as necessary. Thank you.
[2017-05-05] MEDS ORDERED: MoRPHine SULFATE 2 MG/ML CARP IV STA (10:03)
[2017-05-05] MEDS ORDERED: MAGIC MOUTHWASH PO PRN (10:15)
[2017-05-05] MEDS ORDERED: DEXAMETHASONE CONC SOLN 3.75 MG, NYSTATIN SUSP 30 ML, DiphenhydrAMINE HCL SYRUP 300 MG,... PO PRN ×5 (10:15)
[2017-05-05] MEDS: BOOST VANILLA PO SCH ×6 (10:20→17:02)
--- NOTE | 2017-05-05 14:31 | Family Medicine Progress Note ---
Progress Note Date of Service May 05, 2017. Subjective Pt evaluation today including: conversation w/ patient, physical exam, chart review, lab review, review of studies, review of inpatient medication list Pain: 5/10 pain reported PO Intake: tolerating but uncomfortable due to multiple mouth sores Voiding: no voiding problems Ms. Schmidt reports 5/10 pain related to her skin ulcers. She is otherwise doing well. Constitutional: No fever, No chills Respiratory: No shortness of breath Cardiovascular: No chest pain, No palpitations, No problem reported Abdomen: No pain, No nausea, No vomiting, No diarrhea, No constipation Female : No dysuria Skin: + new/changing skin lesions, + bleeding, + problem reported (open lesions on face, lips, mouth, chest, buttocks, thighs/legs and feet) Medications Current Inpatient Medications Medications (Trade) Dose Ordered Sig/Grace Route Start Time Stop Time Status Last Admin Dose Admin Heparin Sodium (Porcine) (Heparin Sq 5000 Unit/0.5ml) 5,000 unit Q8 SQ 05/05/17 08:00 06/04/17 07:59 05/05/17 13:44 5,000 UNIT Acetaminophen (Tylenol Tab) 650 mg Q4H PRN PO 05/04/17 22:15 06/03/17 22:14 Polyethylene (Miralax Powder Packet) 17 gm DAILY PRN PO 05/04/17 22:15 06/03/17 22:14 Ondansetron HCl (Zofran Inj) 4 mg Q6H PRN IV 05/04/17 22:15 06/03/17 22:14 Allopurinol (Zyloprim Tab) 100 mg QAM PO 05/05/17 09:00 06/04/17 08:59 05/05/17 08:53 100 MG Labetalol HCl (Normodyne Tab) 100 mg Q12H PO 05/05/17 09:00 06/04/17 08:59 05/05/17 08:52 100 MG Paroxetine HCl (pAXil TAB) 20 mg QAM PO 05/05/17 09:00 06/04/17 08:59 05/05/17 08:52 20 MG Potassium Chloride (Klor-Con M10) 10 meq BID PO 05/05/17 09:00 06/04/17 08:59 05/05/17 08:52 10 MEQ Prednisone (PredniSONE TAB) 40 mg DAILY PO 05/05/17 09:00 06/04/17 08:59 05/05/17 08:53 40 MG Trazodone HCl (Desyrel Tab) 50 mg HS PO 05/05/17 21:00 06/04/17 20:59 Mycophenolate Mofetil (Cellcept Cap) 1,000 mg BID PO 05/05/17 09:00 06/04/17 08:59 05/05/17 08:51 1,000 MG Sodium Chloride 1,000 ml @ 100 mls/hr Q10H IV 05/04/17 22:15 06/03/17 22:14 05/05/17 09:02 100 MLS/HR Lidocaine HCl (Viscous Lidocaine 2% Soln) 20 ml QID PRN MT 05/04/17 22:15 06/03/17 22:14 05/05/17 09:07 20 ML Vancomycin HCl (Consult) 1 ea UD PRN N/A 05/05/17 01:15 06/04/17 01:14 Piperacillin Sod/ Tazobactam Sod (Consult) 1 ea UD PRN N/A 05/05/17 01:15 06/04/17 01:14 Piperacillin Sod/ Tazobactam Sod 3.375 gm/Dextrose 115 ml @ 28.75 mls/ hr Q8H IV 05/05/17 02:00 05/15/17 01:59 05/05/17 10:23 28.75 MLS/HR Enteral Nutritional Formula (Boost) 1 can TIDM PO 05/05/17 08:00 06/04/17 07:59 05/05/17 12:13 1 CAN Vancomycin HCl 1100 mg/Sodium Chloride 272 ml @ 125 mls/hr Q24H IV 05/05/17 22:00 05/15/17 00:00 Dexamethasone/ Nystatin/ Diphenhydramine HCl/Sucrose/ Microcrystalline Cellulose/Barcode Q6H PRN PO 05/05/17 10:15 06/04/17 10:14 Morphine Sulfate (MoRPHine SULFATE INJ) 4 mg Q3H PRN IV 05/05/17 11:30 05/18/17 23:29 Objective Vital Signs Date Time Temp Pulse Resp B/P (MAP) Pulse Ox O2 Delivery O2 Flow Rate FiO2 05/05/17 08:07 36.9 97 20 146/65 (92) 92 05/05/17 08:00 Room Air 05/05/17 04:32 36.8 18 146/72 Room Air 05/04/17 22:31 84 18 146/72 95 05/04/17 21:17 80 18 152/82 92 Room Air 05/04/17 19:32 36.8 118 18 134/83 95 Room Air Physical Exam General Appearance: + mild distress Eyes: normal inspection ENT: + pertinent finding (sores on tongue and hard palate) Neck: supple Respiratory/Chest: lungs clear, normal breath sounds, no respiratory distress Cardiovascular: regular rate, rhythm, no edema, no murmur Abdomen: normal bowel sounds, non tender, soft Extremities: normal capillary refill Neurologic/Psychiatric: alert, normal mood/affect, oriented x 3 Skin: + pertinent finding (multiple open and erythematous lesions secondary to ruptured bullae on face, buttocks, inner thighs, and foot; +Nikolsky sign; R foot lesion with purulent drainage ) Laboratory Results Last Resulted 05/04/17 20:10 Red Blood Count 4.50, Mean Corpuscular Volume 90.0, Mean Corpuscular Hemoglobin 30.2, Mean Corpuscular Hemoglobin Concent 33.6, Mean Platelet Volume 9.1, Neutrophils (%) (Auto) 92.3, Lymphocytes (%) (Auto) 3.8, Monocytes (%) (Auto) 3.6, Eosinophils (%) (Auto) 0.0, Basophils (%) (Auto) 0.1, Neutrophils # (Auto) 16.25, Lymphocytes # (Auto) 0.67, Monocytes # (Auto) 0.64, Eosinophils # (Auto) 0.00, Basophils # (Auto) 0.01 Last Resulted 05/04/17 20:10 Past 24 Hours Test 05/05/17 06:41 Range/Units Prothromb Time International Ratio 1.0 0.9-1.1 Prothrombin Time 10.3 9.0-12.0 SECONDS Assessment and Plan 79-year-old female with a past medical history of hypertension, gout, recent diagnosis of pemphigus vulgaris presented to the ER with complaints of a possible infection on her right foot. Cellulitis of right foot: - Likely due to Superinfection of ruptured bullae - Wound culture, blood culture pending - Foot x-ray negative for osteomyelitis - Failed outpatient treatment with Keflex - Started on vancomycin, Zosyn , had received Unasyn in the ER - Pain control with morphine PRN - Wound care consult for open areas of ruptured bullae Pemphigus vulgaris: -Recently diagnosed after biopsy confirmation - Continue immunosuppressive therapy with mycophenolate and prednisone - Rheumatology consult regarding temporary hold on immunosuppressants to treat infection - Morphine for pain control - Magic mouthwash for lesions in the mouth Hypertension -Continue labetalol Gout -Continue allopurinol Insomnia: -Continue trazodone DVT prophylaxis: -Heparin subcutaneous DO NOT RESUSCITATE Disposition: Admitted to [facility] Resident Tracking Resident Involvement: Resident Care Provided Care Provided: Adult [facility] History Resident Physician Supervision Note: I was present with Dr. Parrish during the history and exam. I discussed the case with the resident and agree with the findings and plan as documented in the note. Any exceptions or clarifications are listed here. Pt reports improvement in pain, swelling and redness of right foot in area surrounding sloughed skin, as well as decreased fatigue/malaise. Reports no fever, n/v, TENORIO, lightheadedness, palpitations General Appearance: WD/WN, no apparent distress Respiratory: chest non-tender, lungs clear, normal breath sounds, no respiratory distress Cardiovascular: normal peripheral pulses, regular rate, rhythm, no murmur Gastrointestinal: normal bowel sounds, non tender, soft, no organomegaly Skin Characteristics: other (multiple ruptured bullae in various stages of healing. Right foot bullae measuring 10 cm in diameter w/ some visible purulence and an odor w/ decreased erythema) Assessment/Plan 81 y/o female h/o HTN presents w/ pemphigus vulgaris w/ superimposed cellulitis of the right foot RLE cellulitis - continue vanc/zosyn (day 1), f/u wound and blood cultures, wound care consulted Pemphigus vulgaris - presently on cellcept and prednisone with stabilization of lesions. Morphine for pain mgmt, magic mouthwash PRN. Would consider d/w rheumatology for management in light of infection HTN - continue labetalol Insomnia - continue trazodone
[2017-05-05] MEDS: MoRPHine SULFATE 4 MG/ML 1 ML CARP\\VIAL IV PRN ×2 (15:32→22:01)
[2017-05-05 16:23] VITALS: BP 131/75; PULSE 79; TEMP 37.1; O2SAT 92
[2017-05-05] MEDS ORDERED: NON-FORMULARY MEDICATION (Melatonin (Kp Melatonin) 1 TAB) PO SCH (21:00)
[2017-05-05] MEDS: TRAZODONE HCL 50 MG TAB PO SCH (21:51)
[2017-05-05] MEDS: VANCOMYCIN INJ 1,100 MG in SODIUM CHLORIDE 0.9% 250ML 250 ML IV SCH (23:02)
[2017-05-05 23:32] VITALS: BP 123/73; PULSE 82; TEMP 36.8; O2SAT 92
[2017-05-06] MEDS: PIPERACILL/TAZOBAC IV 3.375 GM in DEXTROSE 5% 100ML IV SCH ×3 (02:38→18:11)
[2017-05-06] MEDS: SODIUM CHLORIDE 0.9% 1000ML 1,000 ML IV SCH ×3 (03:43→23:48)
[2017-05-06] MEDS: HEPARIN SOD 5000 UNIT/0.5 ML CARP SQ SCH ×4 (06:43→21:55)
[2017-05-06 07:12] VITALS: BP 158/72; PULSE 69; TEMP 37; O2SAT 95
[2017-05-06 07:36] LABS: CREATININE 0.92 mg/dl (0.60-1.20); HEMATOCRIT 39.4 % (37-47); MEAN CELL VOLUME 93.6 fL (80-100); MEAN CORPUSCULAR HEMOGLOBIN 29.7 pg (25-34); MEAN CORPUSCULAR HGB CONC 31.7 g/dl (32-36); MEAN PLATELET VOLUME 9.5 fL (7.4-10.4); PLATELET COUNT 232 K/uL (130-400); RED BLOOD COUNT 4.21 M/uL (4.2-5.4); WHITE BLOOD COUNT 10.51 K/uL (4.8-10.8)
[2017-05-06] MEDS: BOOST VANILLA PO SCH ×6 (08:13→17:04)
[2017-05-06] MEDS: PAROXETINE 20 MG TAB PO SCH (08:14)
[2017-05-06] MEDS: MYCOPHENOLATE MOFETIL 250 MG CAP (CELLCEPT) PO SCH ×2 (08:14→21:47)
[2017-05-06] MEDS: ALLOPURINOL 100 MG TAB PO SCH (08:14)
[2017-05-06] MEDS: POTASSIUM CHLORIDE 10 MEQ TABCR PO SCH ×2 (08:14→21:47)
[2017-05-06] MEDS: LABETALOL HCL 100 MG TAB PO SCH ×2 (08:15→21:47)
[2017-05-06] MEDS: MoRPHine SULFATE 4 MG/ML 1 ML CARP\\VIAL IV PRN ×3 (09:36→23:49)
[2017-05-06 15:57] VITALS: BP 145/73; PULSE 69; TEMP 36.8; O2SAT 92
--- NOTE | 2017-05-06 17:39 | Family Medicine Progress Note ---
Progress Note Date of Service May 06, 2017. Subjective Pt evaluation today including: conversation w/ patient, physical exam, chart review, lab review, review of inpatient medication list Pain: Generalized pain, worst in mouth due to ulcers PO Intake: Difficulty with eating due to lesions in mouth Voiding: no voiding problems Ms. Schmidt is a 81 year old female who reports that her right leg cellulitis is improving, however she is struggling with the lesions in her mouth as they are very sore and preventing her from eating. She is only able to tolerate PO liquids. She reports that overall she feels the same as yesterday, and that she had to take her 4mg of morphine for pain in the morning. She also reports fatigue, and states that she did not sleep well last night. Constitutional: No fever, No chills, No sweats, No weight loss Respiratory: No cough, No sputum, No wheezing, No shortness of breath, No dyspnea on exertion Cardiovascular: No chest pain, No orthopnea, No PND, No edema, No claudication Abdomen: No pain, No nausea, No vomiting, No diarrhea, No constipation Skin: + new/changing skin lesions, + problem reported (lesions on her face, lips, tongue, chest, buttocks, thighs and feet) All Other Systems: Reviewed and Negative Medications Current Inpatient Medications Medications (Trade) Dose Ordered Sig/Grace Route Start Time Stop Time Status Last Admin Dose Admin Heparin Sodium (Porcine) (Heparin Sq 5000 Unit/0.5ml) 5,000 unit Q8 SQ 05/05/17 08:00 06/04/17 07:59 05/06/17 14:30 5,000 UNIT Acetaminophen (Tylenol Tab) 650 mg Q4H PRN PO 05/04/17 22:15 06/03/17 22:14 Polyethylene (Miralax Powder Packet) 17 gm DAILY PRN PO 05/04/17 22:15 06/03/17 22:14 Ondansetron HCl (Zofran Inj) 4 mg Q6H PRN IV 05/04/17 22:15 06/03/17 22:14 Allopurinol (Zyloprim Tab) 100 mg QAM PO 05/05/17 09:00 06/04/17 08:59 05/06/17 08:14 100 MG Labetalol HCl (Normodyne Tab) 100 mg Q12H PO 05/05/17 09:00 06/04/17 08:59 05/06/17 08:15 100 MG Paroxetine HCl (pAXil TAB) 20 mg QAM PO 05/05/17 09:00 06/04/17 08:59 05/06/17 08:14 20 MG Potassium Chloride (Klor-Con M10) 10 meq BID PO 05/05/17 09:00 06/04/17 08:59 05/06/17 08:14 10 MEQ Prednisone (PredniSONE TAB) 40 mg DAILY PO 05/05/17 09:00 06/04/17 08:59 05/06/17 08:14 40 MG Trazodone HCl (Desyrel Tab) 50 mg HS PO 05/05/17 21:00 06/04/17 20:59 05/05/17 21:51 50 MG Mycophenolate Mofetil (Cellcept Cap) 1,000 mg BID PO 05/05/17 09:00 06/04/17 08:59 05/06/17 08:14 1,000 MG Sodium Chloride 1,000 ml @ 100 mls/hr Q10H IV 05/04/17 22:15 06/03/17 22:14 05/06/17 14:15 100 MLS/HR Lidocaine HCl (Viscous Lidocaine 2% Soln) 20 ml QID PRN MT 05/04/17 22:15 06/03/17 22:14 05/05/17 09:07 20 ML Vancomycin HCl (Consult) 1 ea UD PRN N/A 05/05/17 01:15 06/04/17 01:14 Piperacillin Sod/ Tazobactam Sod (Consult) 1 ea UD PRN N/A 05/05/17 01:15 06/04/17 01:14 Piperacillin Sod/ Tazobactam Sod 3.375 gm/Dextrose 115 ml @ 28.75 mls/ hr Q8H IV 05/05/17 02:00 05/15/17 01:59 05/06/17 10:13 28.75 MLS/HR Enteral Nutritional Formula (Boost) 1 can TIDM PO 05/05/17 08:00 06/04/17 07:59 05/06/17 12:59 1 CAN Vancomycin HCl 1100 mg/Sodium Chloride 272 ml @ 125 mls/hr Q24H IV 05/05/17 22:00 05/15/17 00:00 05/05/17 23:02 125 MLS/HR Dexamethasone/ Nystatin/ Diphenhydramine HCl/Sucrose/ Microcrystalline Cellulose/Barcode Q6H PRN PO 05/05/17 10:15 06/04/17 10:14 Morphine Sulfate (MoRPHine SULFATE INJ) 4 mg Q3H PRN IV 05/05/17 11:30 05/18/17 23:29 05/06/17 13:30 4 MG Objective Vital Signs Date Time Temp Pulse Resp B/P (MAP) Pulse Ox O2 Delivery O2 Flow Rate FiO2 05/06/17 15:57 36.8 69 18 145/73 (97) 92 Room Air 05/06/17 08:00 Room Air 05/06/17 07:12 37.0 69 18 158/72 (100) 95 Room Air 05/06/17 00:00 Room Air 05/05/17 23:32 36.8 82 18 123/73 (90) 92 Room Air 05/05/17 20:00 Room Air Physical Exam General Appearance: WD/WN, no apparent distress Respiratory/Chest: chest non-tender, lungs clear, normal breath sounds, no respiratory distress, no accessory muscle use Cardiovascular: regular rate, rhythm, no edema, no gallop, no JVD, no murmur Abdomen: normal bowel sounds, non tender, soft, no organomegaly, no pulsatile mass Skin: + pertinent finding (lesions on her face, lips, tongue, chest, buttocks, thighs and feet. The lesion on her R foot is bandaged, and has improved from yesterday.) Laboratory Results Last Resulted 05/06/17 06:30 Last Resulted 05/04/17 20:10 05/06/17 06:30 Assessment and Plan 79 year old female with a past medical history of hypertension, gout, recent diagnosis of pemphigus vulgaris presented to the ER with superimposed cellulitis on her right foot Cellulitis - Likely due to superinfection of ruptured bullae - Wound culture showed enterococcus - sensitivities pending - Continue vancomycin, Zosyn - will tailor abx based on sensitivities & d/c home with oral antibiotics - WBC decreased from 17.6 to 10.5 - Pain control with morphine PRN - Wound care will continue to follow for ruptured bullae Pemphigus vulgaris: - Recently diagnosed after biopsy confirmation - Continue immunosuppressive therapy with mycophenolate and prednisone (began on - May 02) - Morphine prn for pain control - Magic mouthwash for lesions in the mouth - Dr. Johns notified about outpatient follow up for optimizing management Hypertension -Continue labetalol Gout -Continue allopurinol Insomnia: -Continue trazodone DVT prophylaxis: Heparin subcutaneous Code Status: DO NOT RESUSCITATE Disposition: Remains on med/surg, possible d/c tomorrow Resident Physician Supervision Note: I interviewed and examined the patient. Discussed with Dr. Cardenas and agree with findings and plan as documented in the note. Any exceptions or clarifications are listed here: None Documented By: Arian Tobar foot doing better smoking pipes cleaner far less erythema. mouth still hurts. just started meds for pemphigus last week. 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 mouth ulcers and irritation pemphigus vulgaris w ulceration leading to cellulitis - IV abx pending ID&S on Cx. ongoing derm management for pemphigus. otherwise as above Resident Tracking Resident Involvement: Resident Care Provided Care Provided: Adult Hospital Medicine
[2017-05-06] MEDS: TRAZODONE HCL 50 MG TAB PO SCH (21:48)
[2017-05-06] MEDS: VANCOMYCIN INJ 1,100 MG in SODIUM CHLORIDE 0.9% 250ML 250 ML IV SCH (22:20)
[2017-05-06 23:33] VITALS: BP 144/65; PULSE 81; TEMP 36.8; O2SAT 95
[2017-05-07] MEDS: PIPERACILL/TAZOBAC IV 3.375 GM in DEXTROSE 5% 100ML IV SCH ×2 (02:59→10:11)
[2017-05-07] MEDS: HEPARIN SOD 5000 UNIT/0.5 ML CARP SQ SCH ×2 (05:35→13:57)
[2017-05-07 07:37] VITALS: BP 176/92; PULSE 79; TEMP 37.1; O2SAT 93
[2017-05-07] MEDS: PAROXETINE 20 MG TAB PO SCH (08:13)
[2017-05-07] MEDS: MYCOPHENOLATE MOFETIL 250 MG CAP (CELLCEPT) PO SCH (08:14)
[2017-05-07] MEDS: POTASSIUM CHLORIDE 10 MEQ TABCR PO SCH (08:14)
[2017-05-07] MEDS: ALLOPURINOL 100 MG TAB PO SCH (08:14)
[2017-05-07] MEDS: LABETALOL HCL 100 MG TAB PO SCH (08:15)
[2017-05-07] MEDS: BOOST VANILLA PO SCH ×4 (08:15→13:57)
[2017-05-07 08:21] LABS: CREATININE 0.92 mg/dl (0.60-1.20)
[2017-05-07 10:02] VITALS: BP 151/73
[2017-05-07] MEDS: SODIUM CHLORIDE 0.9% 1000ML 1,000 ML IV SCH (10:11)
[2017-05-07] MEDS: MoRPHine SULFATE 4 MG/ML 1 ML CARP\\VIAL IV PRN (10:48)
--- NOTE | 2017-05-07 13:17 | Discharge Instructions ---
Discharge Instructions Date of Service May 07, 2017. Admission Reason for Admission: Cellulitis Of Right Foot Discharge Discharge Diagnosis / Problem: Cellulitis of Right Foot Discharge Goals Goal(s): Decrease discomfort, Improve disease control, Prevent Disease Progression Activity Recommendations Activity Limitations: resume your previous activity . Instructions / Follow-Up Instructions / Follow-Up You were admitted to [facility] with a cellulitis of your right foot, on top of your active pemphigus vulgaris. We treated this with three days of two types of IV antibiotics called vancomycin and zosyn. Now that we have received your wound culture results back, and we know which antibiotics the bacteria are sensitive to, we can discharge you home on a seven day course of oral amoxicillin. A follow-up appointment has been arranged for you with dermatology at [facility] in order to better manage your Pemphigus. In the meantime, given that you are unable to tolerate a normal diet with the lesions in your mouth, please continue to drink fluids, especially the Boosts that you have been having in the hospital. Current Hospital Diet Patient's current hospital diet: Regular Diet Discharge Diet Recommended Diet: Regular Diet Pending Studies Studies pending at discharge: no Medical Emergencies . Who to Call and When: Medical Emergencies: If at any time you feel your situation is an emergency, please call 911 immediately. . Non-Emergent Contact Non-Emergency issues call your: Primary Care Provider . . "Provider Documentation" section prepared by Dg Cardenas. . VTE Core Measure Inpt VTE Proph given/why not?: Unfractionated heparin SQ
[2017-05-07] MEDS ORDERED: AMOX500C3 PO (14:38)
[2017-05-07] MEDS ORDERED: AMOXICILLIN/CLAVULANATE TAB 500 MG TAB PO ONE (14:45)
[2017-05-07 15:15] VITALS: BP 165/81; PULSE 77; TEMP 36.8; O2SAT 96
[2017-05-07] MEDS ORDERED: NYSS/ PO (15:49)
[2017-05-07 15:56] VITALS: BP 165/81; PULSE 77; TEMP 36.8; O2SAT 96
[2017-05-07] MEDS ORDERED: MBXC PO (16:54)
[2017-05-07] MEDS ORDERED: OXYC1TAB3 PO (16:59)
[2017-05-07] MEDS ORDERED: LACT1CAP21 PO (17:01)
--- NOTE | 2017-05-07 17:51 | Discharge Summary ---
Discharge Summary Date of Service May 07, 2017. (Dg Cardenas M.D.) Discharge Summary Admission Date: May 04, 2017 at 22:13 Discharge Date: May 07, 2017 Discharge Disposition: Home Principal Diagnosis: Pemphigus Vulgaris with superimposed cellulitis of right foot (Dg Cardenas M.D.) Medication Reconciliation New Medications: Amoxicillin (Amoxil) 500 Mg Cap 500 MG PO TID for 7 Days, #21 CAP Lactobacillus (Probiotic Acidophilus) 1 Cap Cap 1 CAP PO BID for 30 Days Magic Swizzle (Magic Swizzle - SUCRALFA/ALUM/MAG/DIPHEN/LIDO) 240 Ml Susp 3-4 TSP PO ACHS, #240 ML 100ml Sucralfate 50ml Maalox 50ml Diphenhydramine 40ml 2% Aq. Lidocaine Swish and Swallow Nystatin (Nystatin Suspension) 1 Ml Susp 4 ML PO QID, #1 BTL Oxycodone Ir (Roxicodone Ir) 5 Mg Tab 5 MG PO DIRECTED PRN for Pain, #15 TAB Use prior to wound debridement. Continued Medications: Allopurinol (Zyloprim) 100 Mg Tab 100 MG PO QAM, TAB Cholecalciferol (D 2000) 2,000 Unit Tab 2000 UNITS PO QAM Cranberry (Vaccinium Macrocarp (Cranberry) Unknown Strength Cap Unknown Dose PO QAM Cyanocobalamin (Vitamin B12) 1,000 Mcg Tab 1000 MCG PO QAM Labetalol Hcl (Normodyne) 100 Mg Tab 100 MG PO Q12, TAB Melatonin (Kp Melatonin) 3 Mg Tab 1 TAB PO HS, #30 TAB 2 Refills Mycophenolate Mofetil (Mycophenolate Mofetil) 500 Mg Tab 1000 MG PO BID Paroxetine (Paxil) 20 Mg Tab 20 MG PO QAM, TAB Potassium Chloride (Micro-K Ext Rel) 10 Meq Cap 10 MEQ PO BID, CAP Prednisone (Prednisone) 10 Mg Tab 40 MG PO DAILY STARTED 05/02/17 TAPERED DOSES. 40 MG X 5 DAYS THEN TAPER DIRECTED. Trazodone Hcl (Trazodone) 50 Mg Tab 50 MG PO HS, TAB Discontinued Medications: Cephalexin Monohydrate (Keflex) 500 Mg Cap 500 MG PO BID, CAP STARTED 05/02/17. PRIOR DOSE WAS 500 MG TID FOR 10 DAYS. Discharge Exam Ms. Schmidt is a 81 year old lady who reports that the pain in her right foot is improving, however she is concerned about the presence of new pemphigoid lesions. She reports that she has new sores that have appeared, including one on her left finger. Her other sores have opened and started to bleed intermittently. She is still unable to tolerate any food as her lips appear swollen with lesions and there are also a few present on her tongue, and therefore she is consuming only liquids and Boosts. As far as her cellulitis, she feels this is improving, but would like to follow up with dermatology soon in order to establish more control over her pemphigus. Review of Systems: Constitutional: No fever, No chills, No sweats Respiratory: No cough, No sputum, No wheezing Cardiovascular: No chest pain, No orthopnea, No PND Abdomen: No pain, No nausea, No vomiting Integumentary: + new/changing skin lesions, + bleeding (bleeding noted from previous lesions) Physical Exam: General Appearance: WD/WN, no apparent distress Respiratory/Chest: chest non-tender, lungs clear, normal breath sounds, no respiratory distress, no accessory muscle use Cardiovascular: regular rate, rhythm, no edema, no gallop, no JVD, no murmur , normal peripheral pulses Abdomen / GI: normal bowel sounds, non tender, soft, no organomegaly, no pulsatile mass Skin: + pertinent finding (widespread lesions over her body, including her face, lips, tongue, chest, thighs, buttocks and feet) (Dg Cardenas M.D.) Hospital Course Ms. Schmidt presented to [facility] with a recent diagnosis of pemphigus vulgaris, with multiple open skin lesions secondary to ruptured bullae on her body, the most concerning of which was the lesion on her right foot which appeared erythematous, with purulent drainage. She was treated with IV vancomycin and zosyn for her superimposed cellulitis on her right foot, and wound care was consulted. Her wound culture from her foot came back positive for enterococcus, and she was discharged home on a 7 day course of amoxicillin. She has an appointment to follow up with her radio disc jockey on May 09 (in two days time) . During her time in the hospital, she was unable to tolerate a regular diet, and was supplemented with Boost, which she was also given a prescription for. Total Time Spent: Less than 30 minutes This includes examination of the patient, discharge planning, medication reconciliation, and communication with other providers. (Dg Cardenas M.D.) Resident Physician Supervision Note: I interviewed and examined the patient. Discussed with Dr. Cardenas and agree with findings and plan as documented in the note. Any exceptions or clarifications are listed here: None Documented By: Arian Tobar foot doing better rest of her feels about the same, discussed staying in [facility] for ongoing supportive care and inpatient derm consult regarding pemphigus vs outpt management - mostly due to symptomatic control - she notes that she would prefer outpatient. all other ROS otherwise negative except for as above vitals noted nad breathing unlabored no pallor or icterus skin blisters/ulcers about the same, mouth about the same. no tracking erythema at foot cellulitis - PO abx as above, Cx results noted pemphigus vulgaris - outpt derm f/u in short order (Arian Tobar, D.Adan.) Discharge Instructions Please refer to the electronic Patient Visit Report (Discharge Instructions) for additional information. (Dg Cardenas M.D.) Additional Copies To Heladio Esteves M.D.; Jenny Hubbard P.A.
[2017-05-07] MEDS ORDERED: VANCOMYCIN TROUGH SCH (21:30)
== END 2017-05-07 17:41 | disposition home or self-care (01) | DRG 596 ==
LOC: C.EDB 19:29 → C.MS2W 22:13 → ENRESERV 22:18
PROVIDERS: ADMIT Family Medicine; ATTEND Family Medicine
DX: L10.0 Pemphigus vulgaris (principal); L03.115 Cellulitis of right lower limb; B95.2 Enterococcus as the cause of diseases classified elsewhere; I10 Essential (primary) hypertension; M10.9 Gout, unspecified; G47.00 Insomnia, unspecified; Z51.81 Encounter for therapeutic drug level monitoring; Z79.899 Other long term (current) drug therapy; Z79.52 Long term (current) use of systemic steroids; Z66 Do not resuscitate

== ENCOUNTER 2018-06-04 07:53 | Emergency (ER) | payer OTHER ==
[~2018-06-04] VITALS: Ht 152.4 cm; Wt 61.4 kg
[~2018-06-04 07:53] MED LIST changes: -CALCTAB7 PO; -CEPH500C2 PO; -CHOL100010 PO; +CHOL1TAB76 PO; -CRAN1TAB PO; +LEVO50TA6 PO; -LOSA100T2 PO; -MISCTAB78 PO; +MYCO500T4 PO; -POTA-327 PO; +POTA10CA28 PO; +PRD10 PO; -TRMCR515 TOP; -VANCOMYCIN INJ 1,750 MG in SODIUM CHLORIDE 0.9% 500ML 500 ML IV STA
[2018-06-04 08:01] VITALS: TEMP 36.7; Ht 152.4 cm; Wt 61.4 kg
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
--- NOTE | 2018-06-04 09:08 | DIAGNOSTIC IMAGING REPORT ---
R ELBOW MIN 3 VIEWS ROUTINE CLINICAL HISTORY: Pain following trauma COMPARISON: None FINDINGS: Alignment of the right elbow is anatomic. No acute fracture or joint effusion is identified. Slight irregularity of the condyles is chronic. There may be mild soft tissue swelling overlying the dorsal proximal right forearm. IMPRESSION: No acute fracture or joint effusion of the right elbow. Electronically signed by: Rocael Wilhelm M.D. 06/04/2018 9:06 AM Dictated Date/Time: 06/04/2018 9:05 AM
--- NOTE | 2018-06-04 09:10 | DIAGNOSTIC IMAGING REPORT ---
L HAND MIN 3 VIEWS ROUTINE CLINICAL HISTORY: Left hand pain status post trauma COMPARISON: None. DISCUSSION: The bones are osteopenic. 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 There is an acute intra-articular fracture involving the base the proximal phalanx the fifth finger. There are age-indeterminate fractures involving the fernando of the distal phalanges of the third and fourth fingers. IMPRESSION: 1. Acute intra-articular fracture involving the base of the proximal phalanx of the fifth finger with secondary angulation 2. Age-indeterminate fractures involving the fernando of the distal phalanges of the third and fourth fingers 3. Osteopenia and erosive osteoarthritic change Electronically signed by: Nilay Polo M.D. 06/04/2018 9:09 AM Dictated Date/Time: 06/04/2018 9:07 AM
[2018-06-04] MEDS ORDERED: HYZ/10015 PO (09:25)
[2018-06-04] MEDS ORDERED: DIPHTHERIA/TETANUS/PERTUSSIS 0.5 ML SYR/VIAL IM. ONE (09:45)
[2018-06-04 12:05] VITALS: BP 170/115; PULSE 82; O2SAT 96
== END 2018-06-04 12:05 | disposition home or self-care (01) ==
LOC: C.EDB 07:54
DX: S62.617A Displaced fracture of proximal phalanx of left little finger, initial encounter for closed fracture (principal); S51.811A Laceration without foreign body of right forearm, initial encounter; V43.62XA Car passenger injured in collision with other type car in traffic accident, initial encounter; I10 Essential (primary) hypertension; Z80.9 Family history of malignant neoplasm, unspecified; Z83.79 Family history of other diseases of the digestive system; Z79.899 Other long term (current) drug therapy; Z88.8 Allergy status to other drugs, medicaments and biological substances; Z23 Encounter for immunization